=== PATIENT | female | born 1970 | race Caucasian/White ===

== ENCOUNTER 2019-05-24 17:06 | Emergency (ER) | payer SELFPAY ==
[2019-05-24] MEDS ORDERED: LIDOCAINE 1% 20 ML MDV ONE (18:30)
--- NOTE | 2019-05-24 19:18 | EDPHYS ---
Physician Documentation [facility] Name: Crissy Pinto Age: 48 yrs Sex: Female : 1970 Arrival Date: 05/24/2019 Time: 17:10 Bed 17 Private MD: ED Physician Rusty Hernández HPI: 05/24 19:16 This 48 yrs old Female presents to ER via Ambulatory with complaints of pm1 Laceration To Leg. 19:16 The patient has a laceration related to: self cutting behavior occurred at home. The pm1 laceration(s) is(are) located on the lateral aspect of right thigh. Onset: The symptoms/episode began/occurred 1.5 week(s) ago. Associated signs and symptoms: Pertinent negatives: heavy bleeding, numbness distal to injury, suspected foreign body. The patient has not recently seen a physician. Patient not suicidal or homicidal. Patient self cuts and she has been cutting on this same laceration for the past 1.5 weeks. She cleans the area with alcohol and then cuts it with a razor. 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 - Social history:: Smoking status: . - Ebola Screening: : Patient denies travel to an Ebola-affected area in the 21 days before illness onset. ROS: 19:16 Constitutional: Negative for fever, chills, and weight loss, MS/Extremity: Negative for pm1 injury and deformity. 19:16 Cardiovascular: Negative for chest pain, palpitations, and edema, Respiratory: Negative for shortness of breath, cough, wheezing, and pleuritic chest pain, Neuro: Negative for headache, weakness, numbness, tingling, and seizure. 19:16 Skin: Positive for laceration(s), of the lateral aspect of right thigh, Negative for abscesses, cellulitis. 19:16 All other systems are negative. Exam: 19:16 Constitutional: This is a well developed, well nourished patient who is awake, alert, pm1 and in no acute distress. Head/Face: Normocephalic, atraumatic. Neck: Trachea midline, no thyromegaly or masses palpated, and no cervical lymphadenopathy. Supple, full range of motion without nuchal rigidity, or vertebral point tenderness. No Meningismus. Chest/axilla: Normal chest wall appearance and motion. Nontender with no deformity. No lesions are appreciated. Cardiovascular: Regular rate and rhythm with a normal S1 and S2. No gallops, murmurs, or rubs. Normal PMI, no JVD. No pulse deficits. Respiratory: Lungs have equal breath sounds bilaterally, clear to auscultation and percussion. No rales, rhonchi or wheezes noted. No increased work of breathing, no retractions or nasal flaring. Abdomen/GI: Soft, non-tender, with normal bowel sounds. No distension or tympany. No guarding or rebound. No evidence of tenderness throughout. Back: No spinal tenderness. No costovertebral tenderness. Full range of motion. 19:16 Skin: Appearance: normal except for affected area, injury, laceration(s), of the lateral aspect of right thigh. Vital Signs: 17:27 BP 102 / 76; Pulse 87; Resp 17; Temp 98.7(TE); Pulse Ox 99% on R/A; Weight 63.5 kg (R); tw2 Height 5 ft. 5 in. (165.10 cm) (R); Pain 0/10; 17:27 Body Mass Index 23.30 (63.50 kg, 165.10 cm) tw2 Laceration: 19:16 Wound Repair of 3cm ( 1.2in ) subcutaneous laceration to lateral aspect of right thigh. pm1 Linear shaped.. Distal neuro/vascular/tendon intact. Anesthesia: Local anesthetic administered with 4 mls of 1% lidocaine. Wound prep: Extensive cleansing with hibiclenz by me, Wound irrigation with saline by fl, Wound explored extensively, Copious irrigation. Skin closed with 4 1-0 [place] using staple gun. Dressed with Neosporin, 4x4's. Patient tolerated well. MDM: 18:09 Patient medically screened. pm1 19:16 Data reviewed: vital signs. Data interpreted: Pulse oximetry: on room air is 99 %. pm1 Interpretation: normal. Counseling: I had a detailed discussion with the patient and/or guardian regarding: the historical points, exam findings, and any diagnostic results supporting the discharge/admit diagnosis, the need for outpatient follow up, suture removal in 10-14 days, to return to the emergency department if symptoms worsen or persist or if there are any questions or concerns that arise at home. Administered Medications: No medications were administered Disposition: 05/25 08:58 Co-signature as Attending Physician, Rusty Hernández MD I agree with the assessment and kdr plan of care. Disposition: 05/24/19 19:18 Discharged to Home. Impression: Laceration without foreign body, right lower leg. - Condition is Stable. - Discharge Instructions: Laceration Care, Adult. - Prescriptions for Keflex 500 mg Oral Capsule - take 1 capsule by ORAL route every 6 hours for 10 days; 40 capsule. Bactrim DS 800- 160 mg Oral Tablet - take 1 tablet by ORAL route every 12 hours for 10 days; 20 tablet. - Medication Reconciliation Form, Thank You Letter, Antibiotic Education, Prescription Opioid Use form. - Follow up: Emergency Department; When: As needed; Reason: Worsening of condition. Follow up: Private Physician; When: 10 - 14 days; Reason: Recheck today's complaints, Continuance of care, Staple/Suture removal, Re-evaluation by your physician. - Problem is new. - Symptoms have improved. Signatures: Rusty Hernández MD MD [facility] Anthony Dobbins NP [employer] pm1 Ariana Myles RN RN tw2 Shaq Verduzco Corrections: (The following items were deleted from the chart) 05/24 19:48 19:18 05/24/2019 19:18 Discharged to Home. Impression: Laceration without foreign body, wh right lower leg. Condition is Stable. Forms are Medication Reconciliation Form, Thank You Letter, Antibiotic Education, Prescription Opioid Use. Follow up: Emergency Department; When: As needed; Reason: Worsening of condition. Follow up: Private Physician; When: 10 - 14 days; Reason: Recheck today's complaints, Continuance of care, Staple/Suture removal, Re-evaluation by your physician. Problem is new. Symptoms have improved. pm1
--- NOTE | 2019-05-24 19:18 | ER ---
Nurse's Notes [facility] Name: Crissy Pinto Age: 48 yrs Sex: Female : 1970 Arrival Date: 05/24/2019 Time: 17:10 Bed 17 Private MD: Diagnosis: Laceration without foreign body, right lower leg Presentation: 05/24 17:19 Presenting complaint: Patient states: i need stitches, i cut myself with a razor, i tw2 wanted to hurt myself, i dont do this very often but i am having a rough time, my psychiatrist just , i go to dr. warner for other medication, but i do not feel suicidal . Transition of care: patient was not received from another setting of care. 17:19 Method Of Arrival: Ambulatory tw2 17:23 Complicating Factors: There are no complicating factors for this patient. Onset of tw2 symptoms was May 24, 2019. Risk Assessment: Do you want to hurt yourself or someone else? Patient reports desire/thoughts of hurting themselves or someone else. Provider notified. Initial Sepsis Screen: Does the patient meet any 2 criteria? No. Patient's initial sepsis screen is negative. Does the patient have a suspected source of infection? No. Patient's initial sepsis screen is negative. Care prior to arrival: steristrips applied to RIGHT thigh. 17:23 Acuity: RUDDY 2 tw2 Triage Assessment: 17:56 General: Appears in no apparent distress. comfortable, Behavior is cooperative, bp appropriate for age, anxious, PT DENIES SI/HI. Pain: Complains of pain in lateral aspect of right thigh. EENT: No deficits noted. Neuro: No deficits noted. Neuro: Level of Consciousness is awake, alert, obeys commands, Oriented to person, place, time, situation, Appropriate for age. Cardiovascular: No deficits noted. Respiratory: No deficits noted. GI: No signs and/or symptoms were reported involving the gastrointestinal system. : No signs and/or symptoms were reported regarding the genitourinary system. Derm: No deficits noted. Musculoskeletal: No deficits noted. Injury Description: Laceration sustained to lateral aspect of right thigh. 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 - Social history:: Smoking status: . - Ebola Screening: : Patient denies travel to an Ebola-affected area in the 21 days before illness onset. Screenin:58 Abuse screen: Denies threats or abuse. Denies injuries from another. Nutritional bp screening: No deficits noted. Tuberculosis screening: No symptoms or risk factors identified. Fall Risk None identified. Assessment: 17:58 General: SEE TRIAGE NOTE. Injury Description: Laceration sustained to lateral aspect of bp right thigh is 2.6 to 7.5 cm long, not bleeding. Vital Signs: 17:27 BP 102 / 76; Pulse 87; Resp 17; Temp 98.7(TE); Pulse Ox 99% on R/A; Weight 63.5 kg (R); tw2 Height 5 ft. 5 in. (165.10 cm) (R); Pain 0/10; 17:27 Body Mass Index 23.30 (63.50 kg, 165.10 cm) tw2 ED Course: 17:10 Patient arrived in ED. as 17:23 Triage completed. tw2 17:23 Arm band placed on. tw2 17:40 Juan Ramon Goff, RN is Primary Nurse. bp 17:58 Patient has correct armband on for positive identification. Bed in low position. Call bp light in reach. Side rails up X2. 18:09 Anthony Dobbins NP is PHCP. pm1 18:09 Rusty Hernández MD is Attending Physician. pm1 19:20 Assist provider with laceration repair on lateral aspect of right thigh that was wh between 2.6 to 7.5 cm using chloe. Set up tray. Performed by Anthony Dobbins NP Dressed with 4X4s, Patient tolerated well. Patient did not have IV access during this emergency room visit. Administered Medications: No medications were administered Outcome: 19:18 Discharge ordered by MD. pm1 19:47 Discharged to home ambulatory, with family. 19:47 Condition: good 19:47 Discharge instructions given to patient, family, Instructed on discharge instructions, follow up and referral plans. medication usage, wound care, POC Laceration repair Demonstrated understanding of instructions, follow-up care, medications, wound care, POC Prescriptions given X 2. 19:48 Patient left the ED. Signatures: Sherley Waters Patrick, NP FRAUD EXAMINER pm1 Ariana Myles, RN RN tw2 Shaq Verduzco Juan Ramon Goff RN RN bp
[2019-05-24 20:48] VITALS: BP 102/76; TEMP 98.7; O2SAT 99
== END 2019-05-24 19:48 | disposition home or self-care (01) ==
LOC: ER 17:06
PROC: 0JQL0ZZ Repair Right Upper Leg Subcutaneous Tissue and Fascia, Open Approach (ICD-10-PCS; principal; 2019-05-24)
DX: S71.111A Laceration without foreign body, right thigh, initial encounter (principal); X78.8XXA Intentional self-harm by other sharp object, initial encounter; Y93.9 Activity, unspecified; Y92.9 Unspecified place or not applicable; F32.9 Major depressive disorder, single episode, unspecified; F20.9 Schizophrenia, unspecified
CPT/HCPCS: 99283